=== PATIENT | male | born 1995 | race Caucasian/White ===

== ENCOUNTER → 2017-12-20 | Outpatient (CLI) | payer OTHER | LOC: M WUC 17:42 | DX: S50.02XA Contusion of left elbow, initial encounter (principal); X58.XXXA Exposure to other specified factors, initial encounter; Y92.9 Unspecified place or not applicable | CPT/HCPCS: 73080 ==

== ENCOUNTER 2019-06-15 09:43 | Day surgery (SDC) | payer OTHER ==
[~2019-06-15] VITALS: Ht 172.7 cm; Wt 113.6 kg
[~2019-06-15 09:43] MED LIST: LIDOCAINE 2% INJ 100 MG/5 ML SDV (FOR ANES.) As Ordered ONE; LR 1,000 ML IV ONE; MIDAZOLAM INJ 2 MG/2 ML VIAL (J2250) As Ordered ONE; PROPOFOL 200 MG/20 ML VIAL As Ordered ONE; ROCURONIUM BROMIDE 50 MG/5 ML VIAL As Ordered ONE; fentaNYL 100 MCG/2 ML INJECTION (J3010) As Ordered ONE
[2019-06-15] MEDS ORDERED: BACITRACIN OINT 30GM As Ordered ONE (10:10)
[2019-06-15] MEDS ORDERED: METHYLENE BLUE 0.5% (5MG/ML) 10 ML AMP (PROVAYBLUE)(Q9968 PER 1MG) As Ordered ONE (10:10)
[2019-06-15] MEDS ORDERED: dexameTHASONE 4 MG/ML 1ML VIAL (J1100) As Ordered ONE (10:51)
[2019-06-15] MEDS ORDERED: KETOROLAC 60 MG/2 ML VIAL (J1885) As Ordered ONE (10:51)
[2019-06-15] MEDS ORDERED: ONDANSETRON 4MG/2ML VIAL (J2405) As Ordered ONE (10:51)
[2019-06-15] MEDS ORDERED: SUGAMMADEX SODIUM 500 MG/5 ML VIAL (BRIDION) As Ordered ONE (10:52)
[2019-06-15] MEDS ORDERED: SILVER NITRATE APPLICATOR As Ordered ONE ×2 (11:17→11:39)
[2019-06-15] MEDS ORDERED: EPINEPHrine 1MG/ML INJ 30ML MD-VIAL As Ordered ONE (11:39)
[2019-06-15] MEDS ORDERED: oxyCODONE 5MG TAB As Ordered ONE (11:44)
[2019-06-15] MEDS: oxyCODONE 5MG TAB PO PRN ×2 (11:46→12:19)
[2019-06-15] MEDS ORDERED: PROMETHAZINE INJ 25 MG/ML VIAL (J2550) IV PRN (12:00)
[2019-06-15] MEDS ORDERED: METOCLOPRAMIDE INJ 10MG/2ML VIAL (J2765) IV PRN (12:00)
[2019-06-15] MEDS ORDERED: LR 1,000 ML IV SCH ×2 (12:00)
[2019-06-15] MEDS: fentaNYL 100 MCG/2 ML INJECTION (J3010) IV PRN ×2 (12:12→12:17)
[2019-06-15 13:45] VITALS: BP 132/72
--- NOTE | 2019-06-21 10:33 | RO ---
DATE OF OPERATION: 06/15/2019 PREOPERATIVE DIAGNOSIS: Left epistaxis. POSTOPERATIVE DIAGNOSIS: Left epistaxis. PROCEDURE PERFORMED: 1. Nasal endoscopy. 2. Control of the left anterior epistaxis. SURGEON: Samuel Marrero MD [employer]: ANESTHESIA: General. CLINICAL PREAMBLE: This 24-year-old man presented to the office with a history of recurrent left epistaxis. He has had a cauterization done to the left nasal septum about 5 years ago. The epistaxis had recurred and becoming more frequent in the past few months. Management options including nasal endoscopy as well as control of left anterior epistaxis have been discussed with the patient. He understood and consented to the procedure. DESCRIPTION OF PROCEDURE/OR NARRATION: Patient was identified in preop holding and brought to the operating room in stable condition. In supine position on the operating room table, the patient received general anesthesia followed by orotracheal intubation without incident. The patient was prepped and draped in the usual fashion for the procedure. Both sides of the nasal cavity were packed with pledgets soaked in 1:1000 epinephrine. The pledgets were removed. Both sides of the nasal cavity were then inspected using 0 degree rigid nasal endoscope. The right nasal cavity as free of mass, lesion and ulcerations. The right sphenopalatine location was clear. Inspection of the left nasal cavity showed a deviated septum. In addition, a mass was noted around the left medial to the left middle nasal turbinate. The nature of the mass was unclear as it could represent either polyp or possibly intracranial contents herniating into the left nasal cavity. As such, decision was not to biopsy the mass. At this time, the left sphenopalatine location was inspected and found to be free of vascular lesions. The nasopharynx was clear. The left anterior nasal septum was inspected and found to have stigmata consistent with recent active epistaxis. Gentle instrumentation was used resulting in bleeding. As such, a decision was made to use silver nitrate to cauterize the left anterior nasal septum. Complete hemostasis was achieved with the cauterization using the silver nitrate to the left anterior nasal septum. Bacitracin was applied to the left nasal septum at this time. At the end of the procedure, sponge and instrument counts were correct. No complications were encountered. Estimated blood loss was less than 1 mL. General anesthesia was reversed and the patient was extubated and brought to the recovery room in stable condition.
== END 2019-06-15 13:45 | disposition home or self-care (01) ==
LOC: M SDC 09:43
PROVIDERS: ATTEND Otolaryngology
DX: R04.0 Epistaxis (principal)
CPT/HCPCS: 31238; J1100; J1885; J2250; J2405; J3010; Q9968

== ENCOUNTER → 2019-06-23 | Outpatient (CLI) | payer OTHER ==
[~2019-06-23] MED LIST changes: -LIDOCAINE 2% INJ 100 MG/5 ML SDV (FOR ANES.) As Ordered ONE; -LR 1,000 ML IV ONE; -MIDAZOLAM INJ 2 MG/2 ML VIAL (J2250) As Ordered ONE; +PRED20TA PO; -PROPOFOL 200 MG/20 ML VIAL As Ordered ONE; -ROCURONIUM BROMIDE 50 MG/5 ML VIAL As Ordered ONE; -fentaNYL 100 MCG/2 ML INJECTION (J3010) As Ordered ONE
--- NOTE | 2019-06-24 09:58 | REP ---
MAXILLOFACIAL CT WITHOUT CONTRAST: HISTORY: Chronic sinusitis. Minimal mucosal thickening is present in the maxillary sinuses. The remaining sinuses are clear. The ostiomeatal units are patent. The middle and inferior nasal turbinates are partially paradoxical. There is mild deviation of the nasal septum to the left superiorly and to the right inferiorly. A spur is present arising from the right side of the nasal septum. This abuts the right inferior nasal turbinate. The cribriform plate, medial perera of the orbits and optic canals are intact. There is aeration of the anterior clinoid processes. The carotid canals form a segment of the posterolateral perera of the sphenoid sinus. IMPRESSION: Sinus mucosal thickening as described above. Unreviewed
== END ==
LOC: M RAD 15:45
PROVIDERS: ATTEND Otolaryngology
DX: R04.0 Epistaxis (principal); J31.0 Chronic rhinitis

== ENCOUNTER 2019-08-10 09:53 | Day surgery (SDC) | payer OTHER ==
[~2019-08-10] VITALS: Ht 172.7 cm; Wt 118.4 kg
[~2019-08-10 09:53] MED LIST changes: +LIDOCAINE 1% MDV 20ML VIAL SQ PRN; +LR 1,000 ML IV ONE; -PRED20TA PO; +dexameTHASONE 4 MG/ML 1ML VIAL (J1100) IV ONE
[2019-08-10] MEDS ORDERED: PRED20TA PO (10:31)
[2019-08-10] MEDS ORDERED: OXYMETAZOLINE NASAL SPRAY (AFRIN) As Ordered ONE (13:05)
[2019-08-10] MEDS ORDERED: EPINEPHrine 1MG/ML INJ 30ML MD-VIAL As Ordered ONE (13:05)
[2019-08-10] MEDS ORDERED: METHYLENE BLUE 0.5% (5MG/ML) 10 ML AMP (PROVAYBLUE)(Q9968 PER 1MG) As Ordered ONE (13:06)
[2019-08-10] MEDS ORDERED: LIDOCAINE W/EPINEPHRINE 1% 20ML VIAL As Ordered ONE (13:47)
[2019-08-10] MEDS ORDERED: fentaNYL 250 MCG/5 ML INJECTION (J3010) As Ordered ONE (13:51)
[2019-08-10] MEDS ORDERED: MIDAZOLAM INJ 2 MG/2 ML VIAL (J2250) As Ordered ONE (13:51)
[2019-08-10] MEDS ORDERED: LIDOCAINE 2% INJ 100 MG/5 ML SDV (FOR ANES.) As Ordered ONE (13:51)
[2019-08-10] MEDS ORDERED: ONDANSETRON 4MG/2ML VIAL (J2405) As Ordered ONE (13:51)
[2019-08-10] MEDS ORDERED: dexameTHASONE 4 MG/ML 1ML VIAL (J1100) As Ordered ONE (13:51)
[2019-08-10] MEDS ORDERED: ROCURONIUM BROMIDE 50 MG/5 ML VIAL As Ordered ONE (13:51)
[2019-08-10] MEDS ORDERED: SUGAMMADEX SODIUM 500 MG/5 ML VIAL (BRIDION) As Ordered ONE (13:53)
[2019-08-10] MEDS ORDERED: SODIUM CHLORIDE 0.9% NASAL GEL 15GM (AYR) As Ordered ONE (14:06)
[2019-08-10] MEDS ORDERED: BACITRACIN OINT 30GM As Ordered ONE (14:12)
[2019-08-10] MEDS ORDERED: PERCOCET 5MG/325MG TAB As Ordered ONE (14:42)
[2019-08-10] MEDS ORDERED: ONDANSETRON 4MG/2ML VIAL (J2405) IV PRN (14:45)
[2019-08-10] MEDS: PERCOCET 5MG/325MG TAB PO PRN ×2 (14:45→15:20)
[2019-08-10] MEDS ORDERED: LR 1,000 ML IV SCH ×2 (14:45)
[2019-08-10] MEDS ORDERED: MORPHINE 10 MG/ML 1ML VIAL (J2270) IV PRN (14:45)
[2019-08-10 16:15] VITALS: BP 138/88
== END 2019-08-10 16:18 | disposition home or self-care (01) ==
LOC: M SDC 09:53
PROVIDERS: ATTEND Otolaryngology
DX: J34.9 Unspecified disorder of nose and nasal sinuses (principal); Z88.1 Allergy status to other antibiotic agents; Z88.2 Allergy status to sulfonamides
CPT/HCPCS: 31237; J1100; J2250; J2405; J3010; Q9968

== ENCOUNTER 2025-02-11 11:56 | Emergency (ER) | payer OTHER, SELFPAY ==
[~2025-02-11 11:56] MED LIST changes: -LIDOCAINE 1% MDV 20ML VIAL SQ PRN; -LR 1,000 ML IV ONE; +PRED20TA PO; -dexameTHASONE 4 MG/ML 1ML VIAL (J1100) IV ONE
[2025-02-11] MEDS: NS (Normal Saline) 0.9% 1,000 ML IV ONE (13:20)
[2025-02-11] MEDS: ONDANSETRON 4MG 2ML VIAL IV ONE (13:20)
[2025-02-11 13:31] LABS: BASO % 0.2 % (0.0-1.0); EOS # 0.1 10^3/uL (0.0-0.5); EOS % 1.2 % (0.0-3.0); HEMATOCRIT 49.2 % (42.0-52.0); LYMPH # 0.5 10^3/uL (1.5-5.0); LYMPH % 4.5 % (24.0-44.0); MEAN CORPUSCULAR HEMOGLOBIN 29.1 pg (27.0-33.0); MEAN CORPUSCULAR HGB CONC 34.6 g/dl (32.0-36.5); MEAN CORPUSCULAR VOLUME 84.2 fl (80.0-96.0); MONO # 0.7 10^3/uL (0.0-0.8); MONO % 6.7 % (2.0-8.0); NEUTROPHILS % 87.1 % (36.0-66.0); PLATELET COUNT, AUTOMATED 282 10^3/uL (150-450); RED BLOOD COUNT 5.84 10^6/uL (4.30-6.10); WHITE BLOOD COUNT 10.3 10^3/uL (4.0-10.0)
[2025-02-11 14:36] VITALS: BP 137/76; TEMP 98.3; O2SAT 99
[2025-02-11 14:38] LABS: AMORPHOUS SEDIMENT SMALL (NEGATIVE); APPEARANCE, URINE HAZY (CLEAR); BACTERIA, URINE AUTO NEGATIVE (NEGATIVE); BILIRUBIN, URINE AUTO NEGATIVE (NEGATIVE); BLOOD, URINE BLOOD NEGATIVE (NEGATIVE); COLOR, URINE AMBER (YELLOW); GLUCOSE, URINE (UA) AUTO NEGATIVE (NEGATIVE); KETONE, URINE AUTO NEGATIVE (NEGATIVE); LEUKOCYTE ESTERASE, URINE AUTO NEGATIVE (NEGATIVE); MUCUS, URINE SMALL (NEGATIVE); NITRITE, URINE AUTO NEGATIVE (NEGATIVE); PROTEIN, URINE AUTO 1+ mg/dL (NEGATIVE); RBC, URINE AUTO 2 /HPF (0-3); SPECIFIC GRAVITY URINE AUTO 1.032 (1.002-1.035); SQUAMOUS EPITHELIAL CELL UR AU 0 /HPF (0-6); WBC, URINE AUTO 1 /HPF (0-3)
[2025-02-11] MEDS ORDERED: ONDA-282 PO (15:08)
== END 2025-02-11 15:21 | disposition home or self-care (01) ==
LOC: M ED 11:56
DX: B34.2 Coronavirus infection, unspecified (principal); Z88.1 Allergy status to other antibiotic agents; Z88.2 Allergy status to sulfonamides
CPT/HCPCS: 81001; 85025; 87486; 87581; 87633; 87798; 96361; 96374; 99284; J2405